=== PATIENT | male | born 1995 | race Two or more races ===

== ENCOUNTER 2023-07-29 19:54 | Emergency (ER) | payer OTHER ==
[~2023-07-29] VITALS: Ht 185.4 cm; Wt 124.5 kg
[2023-07-29 20:23] VITALS: BP 116/79; PULSE 95; RESP 18; O2SAT 95
[2023-07-29 21:26] LABS: Chloride 106 mmol/L (98-107); Sodium 138 mmol/L (136-145)
[2023-07-29 21:27] LABS: Anion Gap 5 (5-15); Calcium 9.6 mg/dL (8.7-10.4); Carbon Dioxide 27 mmol/L (20-30)
[2023-07-29 21:32] LABS: BUN/Creatinine Ratio 15.3 (10.0-20.0); Blood Urea Nitrogen 18 mg/dL (9-23); Glucose 103 mg/dL (74-106); Lipase 71 U/L (12-53)
[2023-07-29 21:42] LABS: Hematocrit 49.2 % (41.0-53.0); Hemoglobin 16.5 g/dL (13.5-17.5); Mean Corpuscular Hemoglobin 28.7 pg (28.0-32.0); Mean Corpuscular Hgb Conc. 33.5 g/dL (32.0-36.0); Mean Corpuscular Volume 85.8 fL (80.0-100.0); Red Blood Cells 5.73 10^6/uL (4.5-5.90); Red Cell Distribution Width 14.1 % (11.8-14.3); White Blood Cell 5.4 10^3/uL (4.4-10.8)
[2023-07-29 21:44] LABS: Basophils % (manual) 0 (0.0-2.0); Blast Cells 0; Eosinophils % (manual) 0 (0-7); Metamyelocytes % 0; Myelocytes % 0; Promyelocytes % 0
[2023-07-29 22:05] LABS: Band Neutrophils % (manual) 4; Lymphocytes % (manual) 29 (10.0-50.0); Monocytes % (manual) 9 (0-12); Platelet Estimate Adequate; Reactive Lymphocytes 4
[2023-07-30 01:37] LABS: Urine Bacteria None Seen /hpf (None Seen)
[2023-07-30] MEDS ORDERED: IBUP-1455 PO (01:41)
[2023-07-30] MEDS ORDERED: ACET500T58 PO (01:41)
[2023-07-30 01:46] LABS: Urine Blood Negative /uL (Negative); Urine Clarity Clear (Clear); Urine Color Light-Yellow (Yellow); Urine Protein, UAD Negative (Negative); Urine Specific Gravity 1.027 (1.001-1.035); Urine Urobilinogen Normal (Negative); Urine WBC <1 /hpf (0 - 3); Urine pH 5.5 (5.0-9.0)
== END 2023-07-30 02:24 | disposition left against medical advice (07) ==
LOC: ER 19:54
DX: R53.1 Weakness (principal); M79.10 Myalgia, unspecified site
CPT/HCPCS: 36415; 80048; 81001; 83690; 85007; 85027